=== PATIENT | female | born 1945 | race African-American/Black ===

== ENCOUNTER → 2017-02-07 | Outpatient (CLI) | payer MEDICARE, BC ==
[2015-03-26 13:32] VITALS: BP 135/84
[~2017-02-07] MED LIST: ACLI400A2 IH; ALBU2.5V14 NEB; AMLO-267 PO; BETA15CR3 TP; Doxycycline Hyclate PO; FLUT16SP NS; FURO-68 PO; HYDR-2666 PO; POTA20PA8 PO; PRAM0.255 PO; PRAM0.5T PO; PRED-220 PO; TRAM50TA PO; ZOLP10TA PO
--- NOTE | 2017-02-07 11:21 | RAD ---
Indication follow-up lung nodule. Noncontrast imaging through the chest was performed and is compared to a study 08/09/2016. Imaging through the upper abdomen demonstrates 2 low density masses in the liver compatible with cysts similar to an examination 06/11/2013. The subcutaneous mass seen on the most recent CT examination of the chest is not well detected on this study because of partial cropping of the subcutaneous soft tissues. Acute or definite significant finding in the upper abdomen is not seen. There is some coronary artery calcification. Significant hilar or mediastinal adenopathy is not seen previously identified "nodule" in the right lower lobe actually probably reflects an area of pleural-parenchymal scarring. This was suggested on the prior CT. A dominant soft tissue mass in either lung is not seen. An acute finding in the chest is not seen. IMPRESSION: No acute finding in the chest. Where previously a nodule was suggested in the right lower lobe there is probably, instead, scarring. A discrete nodule is not seen in either lung. PQRS Compliance Statement: One or more of the following individualized dose reduction techniques were utilized for this examination: 1. Automated exposure control 2. Adjustment of the mA and/or kV according to patient size 3. Use of iterative reconstruction technique
== END | disposition home or self-care (01) ==
LOC: CT 10:18
PROVIDERS: ATTEND Internal Medicine Pulmonary Disease
DX: R91.1 Solitary pulmonary nodule (principal)
CPT/HCPCS: 71250

== ENCOUNTER → 2017-02-25 | Outpatient (CLI) | payer MEDICARE, BC ==
[2015-03-26 13:32] VITALS: BP 135/84
--- NOTE | 2017-02-25 14:31 | RAD ---
DATE: 02/25/2017 EXAM: DIGITAL SCREEN BILAT W/CAD HISTORY: Screening COMPARISON: One year earlier This study was interpreted with the benefit of Computerized Aided Detection (CAD). FINDINGS: The breast parenchyma is primarily fatty replaced. Breast parenchyma level density A.. Several benign-appearing lymph nodes are noted in both axilla. A significant change in the appearance of the breasts compared to the previous exam is not seen IMPRESSION: Benign findings BI-RADS CATEGORY: 2 BENIGN FINDING(S) RECOMMENDED FOLLOW-UP: 12M 12 MONTH FOLLOW-UP PQRS compliance statement: Patient information was entered into a reminder system with a target due date 02/25/2018 for the next mammogram. Mammography is a sensitive method for finding small breast cancers, but it does not detect them all and is not a substitute for careful clinical examination. A negative mammogram does not negate a clinically suspicious finding and should not result in delay in biopsying a clinically suspicious abnormality. "Our facility is accredited by the [employer] Mammography Program."
== END | disposition home or self-care (01) ==
LOC: MAMMO 13:39
PROVIDERS: ATTEND Internal Medicine
DX: Z12.31 Encounter for screening mammogram for malignant neoplasm of breast (principal)
CPT/HCPCS: G0202; 77067

== ENCOUNTER → 2017-08-19 | Day surgery (SDC) | payer MEDICARE, BC ==
[~2017-08-19] MED LIST changes: -AMLO-267 PO; +AMLO1TAB PO; +AMLO1TAB43 PO; +BUDE10.2 IH; -HYDR-2666 PO; +HYDR-2758 PO; +HYDROmorphone 2 MG/ML VIAL IV PRN; +IV RINGERS,LACTATED 1000ML 1,000 ML IV SCH; +LIDOCAINE 1% PF 2 ML VIAL. ID PRN; +MORPHINE SULFATE 2 MG/ML DISP.SYRIN. IV PRN; +ONDANSETRON PF 4 MG/2 ML VIAL. IV PRN; +POTA20PA21 PO; -POTA20PA8 PO; +PROCHLORPERAZINE 10 MG/2 ML VIAL. IV PRN; +PROPOFOL 20 ML IV ONE; +fentaNYL PF VIAL 100 MCG/2 ML VIAL IV PRN
--- NOTE | 2017-08-19 10:55 | PDOC1 ---
HISTORY & PHYSICAL H&P Concepcion Flores 1945 01/15/2017 02:20 PM 11/10 [place] [facility] [address] [place] [address]. [phone] Patient: Concepcion Flores Date of : 1945 Date: 01/15/2017 2:20 PM Visit Type: Office Visit This 71 year old female presents for Diarrhea and H/o colorectal polyp. History of Present Illness: 1. Diarrhea Onset: 6 months ago. Stool frequency: 3 to 4 times a day. The patient describes it as loose, watery and brown. It occurs constantly. She denies aggravating factors. She denies relieving factors. Associated symptoms include cramping ( abdominal). Pertinent negatives include abdominal pain, blood in stool, nausea and weight loss. 2. H/o colorectal polyp Prior screening: colonoscopy. Risk Factors: h/o colon polyp. Associated symptoms include abdominal pain and diarrhea. Pertinent negatives include change in bowel habits, change in stool caliber, constipation, decreased appetite, melena, nausea, rectal bleeding, vomiting, weight gain and weight loss. Additional information: No family history of colon cancer, No family history of Crohn's/colitis and No NSAID/ASA use. INTAKE COMMENTS: Intake Comments: Nurse Note: the pt is here today having issues with diarrhea PROBLEM LIST: Problem Description Onset Date Spinal enthesopathy of lumbar region 05/29/2016 Acute exacerbation of COPD 01/04/2013 Colostomy bag changed 07/26/2013 Urinary tract infectious disease 04/14/2013 Hyperlipidemia 07/26/2013 Hypothyroidism 02/22/2013 COPD with chronic bronchitis and emphysema 11/29/2015 Abnormal glucose level 08/23/2013 Essential hypertension 01/04/2013 Diverticular disease of colon 01/04/2013 PAST MEDICAL/SURGICAL HISTORY (Detailed) Disease/disorder Onset Date Management Date Comments Hysterectomy, total Asthma Colonic polyps 02/25/2013 colonoscopy with biopsy 02/25/2013 COPD Degenerative disc disease Degenerative joint disease Diverticulitis with abscess Colostomy Diverticulosis 02/25/2013 Hypertension Osteoarthritis Oxygen dependent Segmental colitis 02/25/2013 Sleep apnea DIAGNOSTICS HISTORY: Test Ordered Interpretation Result completed COLONOSCOPY AND BIOPSY 02/08/2013 Imp: Colonic polyp, (bx). Extensive diverticulosis with spasticity with some degree of segmental colitis and active inflammation. BX: Tubular adenoma. 02/25/2013 Test Ordered Ordering Comments Modifier COLONOSCOPY AND BIOPSY 02/08/2013 Not currently . Medications (Active): Started Medication Directions Instruction Stopped 12/10/2016 Ambien 10 mg tablet take 1 tablet (10MG) by oral route every day at bedtime 12/10/2016 amlodipine 10 mg-atorvastatin 20 mg tablet take 1 tablet by oral route every day 12/10/2016 cyclobenzaprine 10 mg tablet take 1 tablet by oral route 3 times every day 12/10/2016 fluticasone 50 mcg/actuation nasal spray,suspension spray 1 spray by intranasal route 2 times every day in each nostril 12/10/2016 gabapentin 100 mg capsule take 1 capsule by oral route 3 times every day 12/10/2016 hydrocodone 7.5 mg-acetaminophen 325 mg tablet take 1 tablet by oral route every 6 hours as needed for pain 12/10/2016 Lasix 40 mg tablet take 1 tablet (40MG) by oral route 2 times every day 12/10/2016 potassium chloride ER 20 mEq tablet,extended release(part/cryst) TAKE 1 TABLET TWICE A DAY WITH FOOD 12/10/2016 pramipexole 0.5 mg tablet TAKE 1 TABLET BY ORAL ROUTE 2-3 HOURS BEFORE BEDTIME 12/10/2016 Proventil HFA 90 mcg/actuation aerosol inhaler inhale 2 puff by inhalation route every 4 hours as needed 12/10/2016 Symbicort 160 mcg-4.5 mcg/actuation HFA aerosol inhaler inhale 2 puff by inhalation route 2 times every day in the morning and evening 12/10/2016 Tudorza Pressair 400 mcg/actuation breath activated inhale 1 puff by inhalation route every 12 hours Allergies: Ingredient Reaction Medication Name Comment NO KNOWN ALLERGIES REVIEW OF SYSTEMS System Neg/Pos Details Constitutional Negative Chills, fever, malaise, weight gain and weight loss. ENMT Negative Sore throat. Eyes Negative Double vision. Respiratory Negative Dyspnea and wheezing. Cardio Negative Chest pain and irregular heartbeat/palpitations. GI Positive Abdominal cramping, Abdominal pain, Diarrhea, See HPI. GI Negative Blood in stool, change in bowel habits, change in stool caliber, constipation, decreased appetite, melena, nausea, see HPI, rectal bleeding and vomiting. Negative Dysuria and hematuria. Endocrine Negative Cold intolerance and heat intolerance. Psych Negative Anxiety. Integumentary Negative Hives and rash. MS Negative Joint pain. Ronald/Lymph Negative Easy bleeding and easy bruising. Allergic/Immuno Negative Food allergies. VITAL SIGNS Time BP mm/Hg Pulse /min Resp /min Temp F Ht ft Ht in Ht cm Wt lb Wt kg BMI kg/ m2 BSA m2 O2 Sat% 2:44 PM 126/84 71 97.9 5.0 6.00 167.64 248.00 112.491 40.03 97 Time Measured by 2:44 PM Tamie Alvarez PHYSICAL EXAM: Exam Findings Details Constitutional Normal Well developed. Eyes Normal Conjunctiva - Right: Normal, Left: Normal. Sclera - Right: Normal, Left: Normal. Nasopharynx Normal Lips/teeth/gums - Normal. Neck Exam Normal Inspection - Normal. Thyroid gland - Normal. Respiratory Normal Inspection - Normal. Auscultation - Normal. Cardiovascular Normal Regular rate and rhythm. No murmurs, gallops, or rubs. Vascular Normal Pulses - Carotids: Normal, Femoral: Normal, Dorsalis pedis: Normal. Abdomen Normal Inspection - Normal. Anterior palpation - No guarding. No abdominal tenderness. No hepatic enlargement. No splenic enlargement. No hernia. No Ascites. Skin Normal Inspection - Normal. Extremity Normal No edema. Psychiatric Normal Oriented to time, place, person, and situation. Appropriate mood and effect. The patient was checked out at 3:17 PM by Tamie Alvarez. Assessment/Plan # Detail Type Description 1. Assessment Functional diarrhea (K59.1). Patient Plan Await colonoscopy. 2. Assessment History of colon polyps (Z86.010). Patient Plan schedule colonoscopy at [facility] Plan Orders Further diagnostic evaluations ordered today include(s) Colonoscopy to be performed today. She is to schedule a follow-up visit with Shakira Stafford MD upon completion of work-up Electronically signed by: Shakira Stafford MD 01/15/2017 03:38 PM Document generated by: Shakira Stafford 01/15/2017 03:38 PM Levi Ramirez MD, Family Practice; Benedict Ignacio MD Internal Medicine; Adonay Chen MD, Internal Medicine; Jerald Stafford MD Internal Medicine; Shakira Stafford MD, Gastroenterology; Hugh Rene MD, Rheumatology, [facility], Physical Medicine/[facility] HospitalBrian Lerma APRN ------ 08/19/17 Patient seen and examined. No change in H&P. SHAKIRA STAFFORD MD Aug 19, 2017 10:55
[2017-08-19 12:02] VITALS: BP 134/75
--- NOTE | 2017-08-20 13:43 | PATHOLOGY ---
PATHOLOGY REPORT * * * * * * * * FINAL DIAGNOSIS: Colon biopsy, submucosal mass cecum: - Segment of small intestine mucosa showing mild non-specific enteritis. COMMENT: Sections of the cecal submucosal mass biopsy reveal a segment of small intestine mucosa showing congestion and a mild increase of inflammatory cells within the lamina propria comprised predominantly of chronic inflammatory cells with admixed eosinophils and a few neutrophils. The mucosal villi show no sprue-like changes. There are no granulomas. There is no submucosal mass identified. (JPM:mgr; 08/20/2017) REPORT ELECTRONICALLY SIGNED BY: Wes Olivarez M.D. DATE/TIME: 08/20/2017 13:43 * * * * * * * * GROSS PATHOLOGY: Received in formalin labeled "Concepcion Flores, BX submucosal masscecum," is a segment of lopez soft tissue measuring 0.5 cm in maximum dimension. The specimen is submitted entirely in cassette A1. (TSD; 08/19/2017) INITIAL CPT CODE(S): A; 95146 Professional services [place] [address] Technical services performed by [facility] at [address] [place] [address]. SPECIMEN(S) RECEIVED: A.Biopsy submucosal mass-cecum CLINICAL HISTORY: History of colon polyps PATIENT: CONCEPCION FLORES /AGE: 5 1945 (Age: 72) PATIENT #: [id number] ALT CASE #: SPECIMEN COLLECTION DATE: 08/19/2017 SPECIMEN RECEIVED DATE: 08/19/2017 [facility] - [facility] [place] [address] - PHONE: [phone] * * * END OF REPORT * * *
== END | disposition home or self-care (01) ==
LOC: ENDOS 10:43
PROVIDERS: ATTEND Internal Medicine Gastroenterology
DX: Z09 Encounter for follow-up examination after completed treatment for conditions other than malignant neoplasm (principal); Z87.19 Personal history of other diseases of the digestive system; D49.0 Neoplasm of unspecified behavior of digestive system; E78.00 Pure hypercholesterolemia, unspecified; I10 Essential (primary) hypertension; J44.9 Chronic obstructive pulmonary disease, unspecified; F17.200 Nicotine dependence, unspecified, uncomplicated; Z86.69 Personal history of other diseases of the nervous system and sense organs; Z90.710 Acquired absence of both cervix and uterus; Z87.440 Personal history of urinary (tract) infections
CPT/HCPCS: 45380; 88305; J2704